=== PATIENT | male | born 1980 | race African-American/Black ===

== ENCOUNTER 2019-01-10 08:02 | Emergency (ER) | payer BC ==
--- NOTE | 2019-01-10 08:49 | ER ---
Nurse's Notes [facility] Name: Meena Garcia Age: 38 yrs Sex: Male : 1980 Arrival Date: 01/10/2019 Time: 08:05 Bed 13 Private MD: Diagnosis: Dysphagia Presentation: 01/10 08:14 Presenting complaint: Patient states: Pt reports that over the past 2 weeks, he feels ss as if sometimes it is hard to swallow and when he wakes up in the morning his voice is slightly muffled. Also c/o epigastric burning Denies fever or pain. Pt was seen in out of town ER and was given lidocaine cocktail to help with the symptoms. Transition of care: patient was not received from another setting of care. Onset of symptoms was December 27, 2018. Risk Assessment: Do you want to hurt yourself or someone else? Patient reports no desire to harm self or others. Initial Sepsis Screen: Does the patient meet any 2 criteria? No. Patient's initial sepsis screen is negative. Does the patient have a suspected source of infection? No. Patient's initial sepsis screen is negative. Care prior to arrival: None. 08:14 Acuity: LELO 3 ss 08:14 Method Of Arrival: Ambulatory ss Historical: - Allergies: 08:17 No Known Allergies; ss - Home Meds: 08:17 Nexium Oral [Active]; ss - PMHx: 08:17 None; ss - PSHx: 08:17 None; ss - Immunization history:: Adult Immunizations up to date. - Social history:: Smoking status: Patient/guardian denies using tobacco. - Ebola Screening: : Patient denies exposure to infectious person Patient denies travel to an Ebola-affected area in the 21 days before illness onset. Screenin:20 Abuse screen: Denies threats or abuse. Denies injuries from another. Nutritional jl7 screening: No deficits noted. Tuberculosis screening: No symptoms or risk factors identified. Fall Risk None identified. Assessment: 08:20 General: Appears in no apparent distress. uncomfortable, Behavior is calm, cooperative, jl7 appropriate for age. Pain: Complains of pain in sore throat. Neuro: Level of Consciousness is awake, alert, obeys commands, Oriented to person, place, time, situation. Cardiovascular: Heart tones present Patient's skin is warm and dry. Respiratory: Airway is patent Respiratory effort is even, unlabored, Respiratory pattern is regular, symmetrical, Breath sounds are coarse bilaterally. GI: Abdomen is non-distended, Reports epigastric pain. : No signs and/or symptoms were reported regarding the genitourinary system. EENT: Throat is clear. Derm: Skin is dry, Skin is normal, Skin temperature is warm. Vital Signs: 08:17 BP 141 / 88; Pulse 85; Resp 16; Temp 97.4(TE); Pulse Ox 99% on R/A; Weight 99.79 kg; ss Height 6 ft. 0 in. (182.88 cm); Pain 0/10; 08:17 Body Mass Index 29.84 (99.79 kg, 182.88 cm) ED Course: 08:05 Patient arrived in ED. mr 08:13 [facility] la1 08:13 Albert Stevens MD is Attending Physician. la1 08:16 Triage completed. ss 08:17 Arm band placed on right wrist. ss 08:20 Patient has correct armband on for positive identification. Bed in low position. Call jl7 light in reach. Side rails up X 1. 08:40 Dorys Gallo RN is Primary Nurse. jl7 08:47 Juan Carlos Gupta MD is Referral Physician. la1 08:54 No provider procedures requiring assistance completed. Patient did not have IV access jl7 during this emergency room visit. Administered Medications: No medications were administered Outcome: 08:48 Discharge ordered by . la1 08:54 Discharged to home ambulatory. jl7 08:54 Condition: stable 08:54 Discharge instructions given to patient, Instructed on discharge instructions, follow up and referral plans. medication usage, Demonstrated understanding of instructions, follow-up care, medications, Prescriptions given X 1. 08:54 Patient left the ED. jl7 Signatures: Amanda Concepcion Cyntiha Adams, ADAM MEDINA Vu Lange FNP-C VEGETABLE PACKER-Cla1 Dorys Gallo RN RN jl7
--- NOTE | 2019-01-10 08:50 | EDPHYS ---
Physician Documentation [facility] Name: Meena Garcia Age: 38 yrs Sex: Male : 1980 Arrival Date: 01/10/2019 Time: 08:05 Bed 13 Private MD: ED Physician Albert Stevens HPI: 01/10 08:42 This 38 yrs old Black Male presents to ER via Ambulatory with complaints of Sore Throat.la1 08:42 The patient presents with a foreign body sensation in the throat. The patient describes la1 throat pain as intermittent. Onset: The symptoms/episode began/occurred 10 day(s) ago. Severity of symptoms: At their worst the symptoms were mild, in the emergency department the symptoms have resolved. Modifying factors: the symptoms are aggravated by swallowing, Patient's oral intake status: good. Associated signs and symptoms: Pertinent negatives chest pain, chills, cough, fever, flu-like symptoms, nausea, shortness of breath, vomiting. The patient has not recently seen a physician. Pt reports about ten days ago he ate some foot and felt like it got stuck down by his stomach, since then he has had an abnormal sensation in his throat/stomach when swallowing. Pt is able to eat solids and drink liquids without difficulty, presented to ED today after an episode that caused him anxiety and to feel like he was SOB due to the globus sensation.. Historical: - Allergies: 08:17 No Known Allergies; ss - Home Meds: 08:17 Nexium Oral [Active]; ss - PMHx: 08:17 None; ss - PSHx: 08:17 None; ss - Immunization history:: Adult Immunizations up to date. - Social history:: Smoking status: Patient/guardian denies using tobacco. - Ebola Screening: : Patient denies exposure to infectious person Patient denies travel to an Ebola-affected area in the 21 days before illness onset. ROS: 08:44 Constitutional: Negative for fever, chills, and weight loss, Eyes: Negative for injury, la1 pain, redness, and discharge, ENT: Negative for injury, pain, and discharge, Neck: Negative for injury, pain, and swelling, Cardiovascular: Negative for chest pain, palpitations, and edema, Respiratory: Negative for shortness of breath, cough, wheezing, and pleuritic chest pain. 08:44 : Negative for injury, bleeding, discharge, and swelling, MS/Extremity: Negative for injury and deformity, Neuro: Negative for headache, weakness, numbness, tingling, and seizure. 08:44 Abdomen/GI: Positive for globus sensation, frequent burping. 08:44 : Exam: 08:45 Constitutional: This is a well developed, well nourished patient who is awake, alert, la1 and in no acute distress. Head/Face: Normocephalic, atraumatic. Eyes: Periorbital areas with no swelling, redness, or edema. ENT: Oropharynx with no redness, swelling, or masses, exudates, or evidence of obstruction, uvula midline. Mucous membranes moist. Neck: Trachea midline, no thyromegaly or masses palpated, and no cervical lymphadenopathy. Supple, full range of motion without nuchal rigidity, or vertebral point tenderness. No Meningismus. Chest/axilla: Normal chest wall appearance and motion. Nontender with no deformity. No lesions are appreciated. Cardiovascular: Regular rate and rhythm with a normal S1 and S2. No gallops, murmurs, or rubs. Normal PMI, no JVD. No pulse deficits. Respiratory: Lungs have equal breath sounds bilaterally, clear to auscultation and percussion. No rales, rhonchi or wheezes noted. No increased work of breathing, no retractions or nasal flaring. Abdomen/GI: Soft, non-tender, with normal bowel sounds. No distension or tympany. No guarding or rebound. No evidence of tenderness throughout. MS/ Extremity: Pulses equal, no cyanosis. Neurovascular intact. Full, normal range of motion. Neuro: Awake and alert, GCS 15, oriented to person, place, time, and situation. Motor strength 5/5 in all extremities. Sensory grossly intact. Cerebellar exam normal. Normal gait. Vital Signs: 08:17 BP 141 / 88; Pulse 85; Resp 16; Temp 97.4(TE); Pulse Ox 99% on R/A; Weight 99.79 kg; ss Height 6 ft. 0 in. (182.88 cm); Pain 0/10; 08:17 Body Mass Index 29.84 (99.79 kg, 182.88 cm) ss MDM: 08:13 Patient medically screened. la1 08:22 Patient medically screened. la1 08:46 Data reviewed: vital signs, nurses notes, I have discussed the patient's la1 presentation/case with the attending Emergency Department Physician; and as a result, I will discharge patient. Data interpreted: Pulse oximetry: on room air is 99 %. Interpretation: normal. Counseling: I had a detailed discussion with the patient and/or guardian regarding: the historical points, exam findings, and any diagnostic results supporting the discharge/admit diagnosis, the need for outpatient follow up, a livestock feeder, to return to the emergency department if symptoms worsen or persist or if there are any questions or concerns that arise at home. ED course: Pt tolerating PO in exam room without difficulty, states he will be going to the GI office to get an appointment after leaving here, discussed return precautions . Administered Medications: No medications were administered Disposition: 14:09 Co-signature as Attending Physician, Albert Stevens MD. rn Disposition: 01/10/19 08:48 Discharged to Home. Impression: Dysphagia. - Condition is Stable. - Discharge Instructions: Food Choices for Gastroesophageal Reflux Disease, Adult, Dysphagia, Esophageal Spasm, Gastroesophageal Reflux Disease, Adult. - Prescriptions for Protonix 40 mg Oral Tablet - take 1 tablet by ORAL route once daily; 30 tablet. - Medication Reconciliation Form, Thank You Letter form. - Follow up: Juan Carlos Gupta MD; When: 2 - 3 days; Reason: Recheck today's complaints, Re-evaluation by your physician. Follow up: Emergency Department; When: As needed; Reason: Worsening of condition. Signatures: Albert Stevens MD MD rn Smirch, Shelby, RN RN Vu Lange, AUTOMATIC TYPEWRITER INSPECTOR-C AUTOMATIC TYPEWRITER INSPECTOR-Cla1 Dorys Gallo RN RN jl7 Corrections: (The following items were deleted from the chart) 08:54 08:48 01/10/2019 08:48 Discharged to Home. Impression: Dysphagia. Condition is Stable. jl7 Forms are Medication Reconciliation Form, Thank You Letter, Antibiotic Education, Prescription Opioid Use. Follow up: Juan Carlos Gupta; When: 2 - 3 days; Reason: Recheck today's complaints, Re-evaluation by your physician. Follow up: Emergency Department; When: As needed; Reason: Worsening of condition. la1
[2019-01-10 10:18] VITALS: BP 141/88; TEMP 97.4; O2SAT 99
== END 2019-01-10 08:54 | disposition home or self-care (01) ==
LOC: ER 08:02
DX: R13.10 Dysphagia, unspecified (principal)
CPT/HCPCS: 99282